=== PATIENT | female | born 1945 | race Two or more races ===

== ENCOUNTER 2024-12-30 10:50 | Outpatient (CLI) | payer OTHER | END 2024-12-30 10:51 | disposition home or self-care (01) | LOC: NUCLEAR 10:50 | PROVIDERS: ATTEND Physical Medicine & Rehabilitation | DX: M81.0 Age-related osteoporosis without current pathological fracture (principal) ==

== ENCOUNTER 2024-12-30 11:55 | Outpatient (CLI) | payer OTHER | END 2024-12-30 12:01 | disposition home or self-care (01) | LOC: SONOGRAMA 11:55 | PROVIDERS: ATTEND Physical Medicine & Rehabilitation | DX: M25.511 Pain in right shoulder (principal) ==

== ENCOUNTER → 2025-05-30 12:00 | Outpatient (CLI) | payer OTHER ==
[2025-05-30 15:17] LABS: CREATININE SERUM 0.75 mg/dL (0.55-1.02)
== END | disposition home or self-care (01) ==
LOC: LAB 12:00
PROVIDERS: ATTEND Radiology Diagnostic Radiology
DX: C21.1 Malignant neoplasm of anal canal (principal)

== ENCOUNTER 2025-06-08 07:56 | Outpatient (CLI) | payer OTHER | END 2025-06-08 08:15 | disposition home or self-care (01) | LOC: TOM 07:56 | PROVIDERS: ATTEND Internal Medicine Hematology & Oncology | DX: C21.1 Malignant neoplasm of anal canal (principal) | CPT/HCPCS: 71260; 74177; Q9965 ==